=== PATIENT | female | born 1955 | race Caucasian/White ===

== ENCOUNTER 2021-11-02 08:51 | Outpatient (CLI) | payer OTHER | END 2021-11-02 23:59 | disposition home or self-care (01) | LOC: RT 08:51 | PROVIDERS: ATTEND Internal Medicine | DX: R06.02 Shortness of breath (principal) | CPT/HCPCS: 94010; 94729 ==

== ENCOUNTER → 2023-07-18 | Outpatient (CLI) | payer MEDICARE, MEDICAID, OTHER ==
[2023-07-18] VITALS (9 sets, daily range): BP systolic 109–140; BP diastolic 42–60; PULSE 61–74; RESP 14–16; O2SAT 93–99
[~2023-07-18] MED LIST: regadenoson 0.4mg/5ml syringe IV ONE
== END | disposition home or self-care (01) ==
LOC: RAD 09:35
PROVIDERS: ATTEND Nurse Practitioner Family
DX: I11.0 Hypertensive heart disease with heart failure (principal); I50.32 Chronic diastolic (congestive) heart failure
CPT/HCPCS: 78452; 93017; A9500; J2785

== ENCOUNTER 2023-08-04 11:04 | Outpatient (CLI) | payer MEDICARE, MEDICAID, OTHER | END 2023-08-04 23:59 | disposition home or self-care (01) | LOC: RAD 11:04 | PROVIDERS: ATTEND Nurse Practitioner Family | DX: I08.0 Rheumatic disorders of both mitral and aortic valves (principal); I11.0 Hypertensive heart disease with heart failure; I50.32 Chronic diastolic (congestive) heart failure | CPT/HCPCS: 93306 ==